=== PATIENT | female | born 1975 | race Caucasian/White ===

== ENCOUNTER 2023-01-20 05:53 | Day surgery (SDC) | payer OTHER ==
[2023-01-16 15:12] VITALS: BMI 25.7
[2023-01-20] MEDS ORDERED: PROPOFOL 20 ML ONE (06:51)
[2023-01-20] MEDS ORDERED: Bupivacaine/Epinephrine 0.25% 30 ML VIAL ONE (06:51)
[2023-01-20] MEDS ORDERED: Fentanyl 250 MCG/5 ML VIAL ONE (06:52)
[2023-01-20] MEDS ORDERED: Scopolamine 1.5 mg/72 hour Patch ONE (07:08)
[2023-01-20] MEDS ORDERED: Midazolam HCl 2 mg/2 ml Vial ONE (07:15)
[2023-01-20] MEDS ORDERED: Famotidine/PF 20 mg/2ml Vial ONE (07:16)
[2023-01-20] MEDS ORDERED: Clindamycin/D5W 600 mg/50 ml Premix Bag ONE (07:21)
[2023-01-20] MEDS ORDERED: Promethazine HCl 25 MG/ML VIAL ONE (07:31)
[2023-01-20] MEDS ORDERED: Dexmedetomidine 200 MCG/2 ML VIAL ONE (08:04)
[2023-01-20] MEDS ORDERED: SUGAMMADEX SODIUM 200 MG/2 ML VIAL ONE (08:04)
== END 2023-01-20 11:15 | disposition home or self-care (01) ==
LOC: CSHSDC 05:53
PROVIDERS: ATTEND Surgery
PROC: 0FT44ZZ Resection of Gallbladder, Percutaneous Endoscopic Approach (ICD-10-PCS; principal; 2023-01-20)
PROC: 0YQ64ZZ Repair Left Inguinal Region, Percutaneous Endoscopic Approach (ICD-10-PCS; principal; 2023-01-20)
DX: K40.90 Unilateral inguinal hernia, without obstruction or gangrene, not specified as recurrent (principal); K80.44 Calculus of bile duct with chronic cholecystitis without obstruction; D17.79 Benign lipomatous neoplasm of other sites; Z88.0 Allergy status to penicillin; Z88.1 Allergy status to other antibiotic agents; Z88.5 Allergy status to narcotic agent; Z88.8 Allergy status to other drugs, medicaments and biological substances
CPT/HCPCS: 88304; C1713; C1776; J2250; J2550; J2704; J3010; J3490; S0028